=== PATIENT | male | born 1985 | race Caucasian/White ===

== ENCOUNTER 2016-09-01 15:41 | Emergency (ER) | payer OTHER ==
[2016-09-01] MEDS ORDERED: INSU100I30 SQ (15:58)
[2016-09-01] MEDS ORDERED: IV NORMAL SALINE 1,000ML 1,000 ML IV ONE ×2 (16:15→17:30)
[2016-09-01] MEDS ORDERED: fentaNYL PF 100 MCG/2 ML VIAL ONE (16:15)
[2016-09-01 16:28] LABS: BASO % 0 % (0-3); EOS % 0 % (0-3); HEMATOCRIT 44.1 % (39.0-53.0); HEMOGLOBIN 14.9 g/dL (13.0-17.5); LYMPH # 0.7 x10^3/uL (1.0-4.8); LYMPH % 5 % (24-48); MEAN CORPUSCULAR HEMOGLOBIN 29 pg (25-35); MEAN CORPUSCULAR HGB CONC 34 g/dL (31-37); MEAN CORPUSCULAR VOLUME 86 fL (79-100); MONO # 0.9 x10^3/uL (0.0-1.1); MONO % 6 % (0-9); NEUT % 89 % (31-73); PLATELET COUNT 179 x10^3/uL (140-400); RED BLOOD COUNT 5.13 x10^6/uL (4.30-5.70); RED CELL DISTRIBUTION WIDTH 13.8 % (11.5-14.5); WHITE BLOOD COUNT 14.6 x10^3/uL (4.0-11.0)
[2016-09-01] MEDS ORDERED: FAMOTIDINE 20 MG/2 ML VIAL IVP ONE (16:30)
[2016-09-01] MEDS ORDERED: fentaNYL PF 100 MCG/2 ML VIAL IV ONE (16:30)
[2016-09-01] MEDS ORDERED: ONDANSETRON PF 4 MG/2 ML VIAL. IV ONE (16:30)
[2016-09-01 16:39] LABS: ALBUMIN 3.7 g/dL (3.4-5.0); ALBUMIN/GLOBULIN RATIO 1.1 (1.0-1.7); CALCIUM 8.4 mg/dL (8.5-10.1); CREATININE 0.9 mg/dL (0.7-1.3); GFR 97.2; POTASSIUM 3.8 mmol/L (3.5-5.1); TOTAL BILIRUBIN 0.6 mg/dL (0.2-1.0); TOTAL PROTEIN 7.2 g/dL (6.4-8.2)
[2016-09-01] MEDS ORDERED: HALOPERIDOL LACT 5 MG/ML VIAL. ONE (17:24)
--- NOTE | 2016-09-01 17:29 | ED.ADGEN ---
Past History Past Medical History: Diabetes, Other (JERMAIN ENCISO DO) Past Surgical History: Other (JERMAIN ENCISO DO) Alcohol Use: Occasionally Drug Use: None (JERMAIN ENCISO DO) Adult General Chief Complaint Chief Complaint Abdominal pain, vomiting and diarrhea (JERMAIN ENCISO DO) HPI HPI Patient is a 31-year-old female insulin dependent diabetic who presents with abdominal pain, with intermittent vomiting and watery diarrhea for the past 12 hours. Abdominal pain is periumbilical, diffuse worse with palpation and movement. Vomit stomach contents. No blood in stool or diarrhea. No fever chills or sweats. No recent abx. Patient has not been able to tolerate oral intake this morning and has took insulin this morning. No prior abdominal surgeries. No other acute symptoms or complaints. Patient is in [place] for work [place] of [place]. (JERMAIN ENCISO DO) Review of Systems Review of Systems ROS as per HPI. (JERMAIN ENCISO DO) Current Medications Current Medications Current Medications Medications (Trade) Dose Ordered Sig/Vanda Start Time Stop Time Status Last Admin Dose Admin Famotidine (Pepcid) 20 mg 1X ONCE 09/01/16 16:30 09/01/16 16:31 DC 09/01/16 16:28 20 MG Fentanyl Citrate (Fentanyl 2ml Vial) 50 mcg PRN Q15MIN PRN 09/01/16 18:30 09/02/16 18:29 09/01/16 18:29 50 MCG Haloperidol Lactate (Haldol) 5 mg STK-MED ONCE 09/01/16 17:24 09/01/16 17:25 DC Iohexol (Omnipaque 300 Mg/ml) 75 ml 1X ONCE 09/01/16 17:45 09/01/16 17:46 DC 09/01/16 17:51 75 ML Levofloxacin/ Dextrose 150 ml @ 150 mls/hr 1X ONCE 09/01/16 18:30 09/01/16 19:29 09/01/16 18:23 150 MLS/HR Metronidazole 100 ml @ 200 mls/hr 1X ONCE 09/01/16 19:00 09/01/16 19:29 Ondansetron HCl (Zofran) 8 mg 1X ONCE 09/01/16 16:30 09/01/16 16:31 DC 09/01/16 16:22 8 MG Sodium Chloride 1,000 ml @ 1,000 mls/hr 1X ONCE 09/01/16 17:30 09/01/16 18:29 DC 09/01/16 17:26 1,000 MLS/HR ([facility]) Allergies Allergies Allergies Coded Allergies Type Severity Reaction Last Updated Verified gluten Allergy Unknown 09/01/16 Yes ([facility] ) Physical Exam Physical Exam Constitutional: Well developed, well nourished, no acute distress. HENT: Normocephalic, atraumatic, bilateral external ears normal, oropharynx moist, no oral exudates, nose normal. Eyes: PERRLA, EOMI, conjunctiva normal. Neck: Normal range of motion,. Cardiovascular:Heart rate regular rhythm, no murmur. Lungs & Thorax: Bilateral breath sounds clear to auscultation. Abdomen: Bowel sounds normal, soft, gastric pain, tenderness, no rebound rigidity or guarding. Abdomen is soft, nondistended. Skin: Warm, dry, no erythema, no rash. Back: No tenderness. Extremities: No tenderness. Neurologic: Alert and oriented X 3, normal motor function, normal sensory function. Psychologic: Affect normal, judgement normal, mood normal. [facility] Current Patient Data Vital Signs Vital Signs Date Time Temp Pulse Resp B/P (MAP) Pulse Ox O2 Delivery O2 Flow Rate FiO2 09/01/16 18:29 70 16 112/51 (71) 100 Room Air 09/01/16 15:41 98.0 [facility] Lab Results Laboratory Tests Test 09/01/16 16:12 White Blood Count 14.6 x10^3/uL (4.0-11.0) H Red Blood Count 5.13 x10^6/uL (4.30-5.70) Hemoglobin 14.9 g/dL (13.0-17.5) Hematocrit 44.1 % (39.0-53.0) Mean Corpuscular Volume 86 fL (79-100) Mean Corpuscular Hemoglobin 29 pg (25-35) Mean Corpuscular Hemoglobin Concent 34 g/dL (31-37) Red Cell Distribution Width 13.8 % (11.5-14.5) Platelet Count 179 x10^3/uL (140-400) Neutrophils (%) (Auto) 89 % (31-73) H Lymphocytes (%) (Auto) 5 % (24-48) L Monocytes (%) (Auto) 6 % (0-9) Eosinophils (%) (Auto) 0 % (0-3) Basophils (%) (Auto) 0 % (0-3) Neutrophils # (Auto) 13.0 x10^3uL (1.8-7.7) H Lymphocytes # (Auto) 0.7 x10^3/uL (1.0-4.8) L Monocytes # (Auto) 0.9 x10^3/uL (0.0-1.1) Eosinophils # (Auto) 0.0 x10^3/uL (0.0-0.7) Basophils # (Auto) 0.0 x10^3/uL (0.0-0.2) Sodium Level 140 mmol/L (136-145) Potassium Level 3.8 mmol/L (3.5-5.1) Chloride Level 103 mmol/L (98-107) Carbon Dioxide Level 29 mmol/L (21-32) Anion Gap 8 (6-14) Blood Urea Nitrogen 9 mg/dL (8-26) Creatinine 0.9 mg/dL (0.7-1.3) Estimated GFR (Cockcroft-Gault) 97.2 BUN/Creatinine Ratio 10 (6-20) Glucose Level 154 mg/dL (70-99) H Calcium Level 8.4 mg/dL (8.5-10.1) L Total Bilirubin 0.6 mg/dL (0.2-1.0) Aspartate Amino Transferase (AST) 10 U/L (15-37) L Alanine Aminotransferase (ALT) 23 U/L (16-63) Alkaline Phosphatase 58 U/L (46-116) Total Protein 7.2 g/dL (6.4-8.2) Albumin 3.7 g/dL (3.4-5.0) Albumin/Globulin Ratio 1.1 (1.0-1.7) Lipase 47 U/L (73-393) L ([facility] DO) EKG EKG [] (JERMAIN ENCISO DO) Radiology/Procedures Radiology/Procedures [] (JERMAIN ENCISO DO) Impressions: [address], [place] [address] IMAGING REPORT Signed PATIENT: JOSE EDUARDO MADERA ACCOUNT: [id number] : 1985 LOCATION: ER AGE: 31 SEX: M EXAM STATUS: REG ER ORD. PHYSICIAN: JERMAIN ENCISO DO REASON: adbominal pain PROCEDURE: CT ABD PELV W/ IV CONTRST ONLY CT ABDOMEN/PELVIS Indication: ABDOMINAL PAIN WITH NAUSEA/VOMITING AND DIARRHEA ONSET LAST NIGHT. HX OF CELIAC DISEASE
75MLS OMNI 300 IV CONTRAST
NO PRIORS Technique: Multiple contiguous axial images were obtained through the abdomen and pelvis after administration of intravenous iodinated contrast. Coronal and sagittal reformations were created. PQRS STATEMENT One or more of the following in the visualized dose reduction techniques were utilized for this study: 1. Automatic exposure control, 2. Adjustment of the mA and/or kV according to patient size, 3. Use of iterative reconstruction technique Findings: The appendix is moderately dilated measuring 2.3 cm a large appendicolith is noted which measures 1.9 cm. There is some periappendiceal stranding but no loculated fluid collection or pneumoperitoneum to suggest rupture. The heart size is normal. The lung bases are clear. The liver is normal in size with no focal lesion identified. The gallbladder is nondistended. The pancreas, spleen, and adrenal glands are within normal limits. The kidneys are unremarkable apart from a small cortical cyst on the left. The portal vein and SMV are patent. The abdominal aorta is normal in caliber. There is no abdominopelvic ascites or adenopathy. The bowel loops are normal in caliber. The urinary bladder is unremarkable. No destructive osseus lesions are identified. Impression: Acute appendicitis without evidence for abscess or rupture. Electronically signed by: Moo Encinas MD (09/01/2016 6:11 PM) [facility] DICTATED AND SIGNED BY: MOO ENCINAS MD DATE: 09/01/16 4059 CC: JERMAIN ENCISO DO; [facility] DO; NON,STAFF ~ ([facility] DO) Course & Med Decision Making Course & Med Decision Making Pertinent Labs and Imaging studies reviewed. (See chart for details) [Persistent abdominal pain with nausea after initial narcotic and antiemetics. Repeat antiemetics given. CT abdomen pelvis pending. Care endorsed to oncoming ERP at 1800.] (JERMAIN ENCISO DO) Course & Med Decision Making I assumed care from Dr. Enciso at shift change. CT of abdomen and pelvis reveals moderately dilated appendix, 2.3 cm, with evidence of periappendiceal stranding , and a large appendicolith at 1.9 cm, evidence of acute appendicitis without evidence of rupture. Leukocytosis at 14.6, no bandemia, no other concerning laboratory abnormalities identified. On reevaluation, patient is experiencing pain in the right lower quadrant and right flank, remains stable on the monitor in sinus rhythm, blood pressures are 1 teens over 70s, heart rate is in the 80s , pain is controlled after additional doses of analgesia. Discussed with patient need for transfer to provide surgical intervention, patient is agreeable with this plan. Additional analgesia and initiation of Levaquin and metronidazole administered. Findings as above discussed with Dr. Moise of general surgery, plan for the patient to likely go to the OR tomorrow for surgical intervention. I did discuss the patient, who is in agreement with transfer stated. Findings as above discussed with Dr. Phelps of internal medicine , will continue Levaquin and metronidazole, patient accepted as a full admission to her service. Transfer paperwork completed, patient resting more comfortably, stable on the monitor, awaiting transfer to [facility] ([facility] DO) Final Impression Final Impression [] Problems: (JERMAIN ENCISO DO) Dragon Disclaimer Dragon Disclaimer This electronic medical record was generated, in whole or in part, using a voice recognition dictation system. (JERMAIN ENCISO DO) Departure: Impression: Primary Impression: Appendicitis Disposition: 05 XFER OTHER Condition: STABLE JERMAIN ENCISO DO Sep 01, 2016 17:29 [facility] DO Sep 01, 2016 18:48
[2016-09-01] MEDS ORDERED: HALOPERIDOL LACT 5 MG/ML VIAL. IVP ONE (17:45)
[2016-09-01] MEDS ORDERED: IOHEXOL 300 MG/ML 75 ML VIAL. IV ONE (17:45)
--- NOTE | 2016-09-01 18:13 | RAD ---
CT ABDOMEN/PELVIS Indication: ABDOMINAL PAIN WITH NAUSEA/VOMITING AND DIARRHEA ONSET LAST NIGHT. HX OF CELIAC DISEASE
75MLS OMNI 300 IV CONTRAST
NO PRIORS Technique: Multiple contiguous axial images were obtained through the abdomen and pelvis after administration of intravenous iodinated contrast. Coronal and sagittal reformations were created. PQRS STATEMENT One or more of the following in the visualized dose reduction techniques were utilized for this study: 1. Automatic exposure control, 2. Adjustment of the mA and/or kV according to patient size, 3. Use of iterative reconstruction technique Findings: The appendix is moderately dilated measuring 2.3 cm a large appendicolith is noted which measures 1.9 cm. There is some periappendiceal stranding but no loculated fluid collection or pneumoperitoneum to suggest rupture. The heart size is normal. The lung bases are clear. The liver is normal in size with no focal lesion identified. The gallbladder is nondistended. The pancreas, spleen, and adrenal glands are within normal limits. The kidneys are unremarkable apart from a small cortical cyst on the left. The portal vein and SMV are patent. The abdominal aorta is normal in caliber. There is no abdominopelvic ascites or adenopathy. The bowel loops are normal in caliber. The urinary bladder is unremarkable. No destructive osseus lesions are identified. Impression: Acute appendicitis without evidence for abscess or rupture. Electronically signed by: Moo Encinas MD (09/01/2016 6:11 PM) [employer]
[2016-09-01 18:29] VITALS: BP 112/51
[2016-09-01] MEDS ORDERED: fentaNYL PF 100 MCG/2 ML VIAL IV PRN (18:30)
[2016-09-01 18:42] LABS: BILIRUBIN,URINE NEG (NEG); CLARITY,URINE CLEAR; COLOR,URINE YELLOW; GLUCOSE,URINE NEG (NEG); NITRITE,URINE NEG (NEG); UROBILINOGEN,URINE 0.2 mg/dL (0.2 mg/dL)
[2016-09-01 18:43] LABS: BACTERIA,URINE FEW /HPF (0-FEW); SQUAMOUS EPITHELIAL CELL,UR FEW /LPF
== END 2016-09-01 20:39 | disposition short-term general hospital (02) ==
LOC: ER 15:41
DX: K37 Unspecified appendicitis (principal); E11.9 Type 2 diabetes mellitus without complications; Z79.4 Long term (current) use of insulin; Z88.8 Allergy status to other drugs, medicaments and biological substances
CPT/HCPCS: 36415; 74177; 80053; 81001; 83690; 85027; 96361; 96365; 96366; 96367; 96375; 96376; 99285; J1630; J1956; J2405; J3010; J3490; Q9967; S0028; J7030